=== PATIENT | female | born 1990 | race Caucasian/White ===

== ENCOUNTER 2021-02-08 10:07 | Emergency (ER) | payer OTHER ==
[~2021-02-08 10:07] MED LIST: DELSYM30 MG/5 ML PO; DOXYCYCLINE HY100 M2 PO; FLONASE 0.05% N16 GM
[2021-02-08 11:12] LABS: HEMOGLOBIN 11.2 gm/dl (12.3-15.3); WHITE BLOOD COUNT 10.8 K/UL (4.5-11.0)
[2021-02-08 11:40] LABS: BUN/CREATININE RATIO 19 (0-10)
== END 2021-02-08 16:30 | disposition short-term general hospital (02) ==
LOC: ER1 10:07
PROVIDERS: Student in an Organized Health Care Education/Training Program
DX: O9A.212 Injury, poisoning and certain other consequences of external causes complicating pregnancy, second trimester (principal); T50.901A Poisoning by unspecified drugs, medicaments and biological substances, accidental (unintentional), initial encounter; R56.9 Unspecified convulsions; Z3A.22 22 weeks gestation of pregnancy
CPT/HCPCS: 71045; 76815; 80053; 80307; 81001; 84702; 85025; 99285; J1630; J2060; J2310; J3475

== ENCOUNTER 2021-03-20 21:53 | Outpatient (CLI) | payer OTHER ==
[2021-03-20 23:04] LABS: HEMOGLOBIN 10.3 gm/dl (12.3-15.3); RED BLOOD COUNT 4.04 M/UL (4.00-5.10); WHITE BLOOD COUNT 10.8 K/UL (4.5-11.0)
== END 2021-03-21 01:00 | disposition home or self-care (01) ==
LOC: GENOP 21:53
PROVIDERS: Obstetrics & Gynecology
DX: O99.891 Other specified diseases and conditions complicating pregnancy (principal); N89.8 Other specified noninflammatory disorders of vagina; O47.03 False labor before 37 completed weeks of gestation, third trimester; O99.343 Other mental disorders complicating pregnancy, third trimester; F31.62 Bipolar disorder, current episode mixed, moderate; O99.323 Drug use complicating pregnancy, third trimester; F11.21 Opioid dependence, in remission; O99.333 Smoking (tobacco) complicating pregnancy, third trimester; F17.210 Nicotine dependence, cigarettes, uncomplicated; Z91.040 Latex allergy status; Z3A.34 34 weeks gestation of pregnancy
CPT/HCPCS: 59025; 80307; 81001; 83518; 85025